=== PATIENT | male | born 1995 | race Caucasian/White ===

== ENCOUNTER 2021-07-23 07:36 | Emergency (ER) | payer OTHER ==
[2021-07-23 08:28] LABS: BASOPHIL 0.4 % (0-2); EOSINOPHIL 0.5 % (0-5); HCT 43.4 % (42.0-52.0); LYMPHOCYTE 7.6 % (15-48); MCH 30.9 pg (25.0-31.0); MCHC 34.6 g/dL (32.0-36.0); MCV 89.5 fL (78.0-100.0); MONOCYTE 5.9 % (0-12); MPV 10.5 fL (6.0-9.5); NEUTROPHIL 85.1 % (41-80); NRBC 0; PLT 235 K/uL (150-400); RBC 4.85 M/uL (4.70-6.00); RDW 12.4 % (11.5-14.0); WBC 17.2 K/uL (4.0-10.5)
[2021-07-23 08:39] LABS: ALBUMIN 4.9 g/dL (3.4-5.0); BILIRUBIN - TOTAL 0.7 mg/dL (0.2-1.0); BUN/CREAT RATIO (CALC) 12.7 RATIO; CREATININE 1.1 mg/dL (0.67-1.17); GLOBULIN (CALCULATION) 2.8 g/dL; POTASSIUM 3.7 mmol/L (3.5-5.1); TOTAL PROTEIN 7.7 g/dL (6.4-8.2)
[2021-07-23 11:35] LABS: BILIRUBIN 1+ mg/dL (NEGATIVE); BLOOD 3+ Ery/uL (NEGATIVE); COLOR YELLOW (YELLOW); GLUCOSE (U) NORMAL (NORMAL); LEUKOCYTES NEGATIVE Leu/uL (NEGATIVE); NITRITE NEGATIVE (NEGATIVE); PROTEIN TRACE (LOW) mg/dL (NEGATIVE); SPECIFIC GRAVITY >=1.030 (1.001-1.030); UROBILINOGEN 0.2 mg/dL (0.2-1.0)
[2021-07-23 11:36] LABS: CLARITY CLOUDY (CLEAR)
[2021-07-23 11:43] LABS: AMORPHOUS URATES CRYSTALS LARGE; BACTERIA TRACE
[2021-07-23] MEDS ORDERED: NORCO 5-325 TA1 EACH PO (13:20)
[2021-07-23] MEDS ORDERED: ONDANSETRON ODT4 MG PO (13:20)
[2021-07-23] MEDS ORDERED: FLOMAX0.4 MG PO (13:20)
[2021-07-23] MEDS ORDERED: CEPHALEXIN500 MG PO (13:22)
== END 2021-07-23 13:36 | disposition home or self-care (01) ==
LOC: FER 07:36
PROVIDERS: Emergency Medicine
DX: N20.1 Calculus of ureter (principal); Z28.310 Unvaccinated for COVID-19
CPT/HCPCS: 36415; 80053; 81001; 83690; 85025; J1170; J1885; J2405; J7030; Q9967